=== PATIENT | male | born 1955 | race Caucasian/White ===

== ENCOUNTER 2017-02-15 09:34 | Observation (INO) | payer OTHER ==
[~2017-02-15] VITALS: Ht 185.4 cm; Wt 133.9 kg
[~2017-02-15 09:34] MED LIST: AMOX1TAB64 PO; ASPI-650 PO; ESOM40CA PO; FLUT16SP2 INH; LISI-167 PO
[2017-02-15] MEDS ORDERED: SODIUM CHLORIDE FLUSH 10ML SYR IVF ONE (10:00)
[2017-02-15] MEDS ORDERED: SODIUM CHLORIDE 0.9% 1,000ML IVBOLUS ONE (10:00)
[2017-02-15 10:25] LABS: HEMATOCRIT 44.1 % (39.2-51.8); HEMOGLOBIN 14.8 g/dL (13.7-18.0); WHITE BLOOD COUNT 18.3 x10^3/uL (3.4-10)
[2017-02-15] MEDS ORDERED: ONDANSETRON 2MG/ML, 2ML ONE (10:28)
[2017-02-15] MEDS ORDERED: KETOROLAC 30 MG/1 ML ONE (10:28)
[2017-02-15] MEDS ORDERED: DEXAMETHASONE 4 MG/ML, 1ML ONE (10:28)
[2017-02-15] MEDS ORDERED: PROPOFOL 10 MG/ML, 20ML ONE (10:28)
[2017-02-15 10:38] LABS: ASPARTATE AMINO TRANSFERASE 9 U/L (15-37); BLOOD UREA NITROGEN 13 mg/dL (7-18)
[2017-02-15] MEDS ORDERED: OMNIPAQUE 350 MG/ML, 100ML BOTTLE ONE (11:50)
[2017-02-15] MEDS ORDERED: SILO8CAP PO (12:52)
[2017-02-15] MEDS ORDERED: METRONIDAZOLE PMX 500MG/100ML 100 ML ONE (12:54)
[2017-02-15] MEDS ORDERED: METRONIDAZOLE PMX 500MG/100ML 100 ML IV ONE (13:00)
[2017-02-15 13:50] VITALS: BP 154/92
[2017-02-15] MEDS ORDERED: BUPIVACAINE/PF 0.5% ONE (16:01)
[2017-02-15] MEDS ORDERED: EPINEPHRINE 1 MG/ML, 1ML ONE (16:01)
[2017-02-15] MEDS ORDERED: FENTANYL PF 100 MCG/2ML ONE (16:03)
[2017-02-15] MEDS ORDERED: MIDAZOLAM 1 MG/ML, 2ML ONE (16:03)
[2017-02-15] MEDS ORDERED: HYDROmorphone 1 MG/ML, 1ML ONE (16:32)
[2017-02-15] MEDS ORDERED: LACTATED RINGERS 1,000 ML IV SCH (16:37)
[2017-02-15] MEDS ORDERED: OXYcodone 5 MG/5 ML ORAL.SOL UDC ONE (16:51)
[2017-02-15] MEDS ORDERED: morphine SULFATE 10 MG/ML, 1ML IVPush PRN (17:00)
[2017-02-15] MEDS ORDERED: HYDROcodone/APAP 5/325 TABLET PO PRN (17:00)
[2017-02-15] MEDS ORDERED: ONDANSETRON 2MG/ML, 2ML IVPush PRN ×2 (17:00→17:30)
[2017-02-15] MEDS ORDERED: hydrALAzine 20 MG/ML, 1ML IV PRN (17:30)
[2017-02-15] MEDS ORDERED: ACETAMINOPHEN 325 MG TABLET PO PRN (17:30)
[2017-02-15] MEDS ORDERED: OXYcodone 5 MG/5 ML ORAL.SOL UDC PO PRN ×2 (17:30)
[2017-02-15] MEDS ORDERED: LABETALOL 5MG/ML, 20ML IV PRN (17:30)
[2017-02-15] MEDS ORDERED: FENTANYL PF 100 MCG/2ML IV PRN (17:30)
[2017-02-15] MEDS ORDERED: MEPERIDINE/PF 25MG/0.5ML IVPush PRN (17:30)
[2017-02-15] MEDS ORDERED: HYDROmorphone 1 MG/ML, 1ML IV PRN (17:30)
[2017-02-15] MEDS ORDERED: PROMETHAZINE 25 MG/ML, 1ML IV PRN (17:30)
[2017-02-15 17:46] VITALS: BP 135/83
[2017-02-15] MEDS ORDERED: OXYcodone 5 MG/5 ML ORAL.SOL UDC PO ONE (18:00)
[2017-02-15 18:55] VITALS: BP 128/77
[2017-02-15] MEDS ORDERED: HYDR-3240 PO (19:35)
[2017-02-15] MEDS ORDERED: LISINOPRIL 20 MG TABLET PO SCH (21:00)
[2017-02-15] MEDS ORDERED: (Esomeprazole Magnesium** (Nexium**) 40 MG) PO SCH (21:00)
== END 2017-02-15 20:12 | disposition home or self-care (01) ==
LOC: ED 10:31 → EDIP 12:50 → INTOOBSV 12:50 → 4NOR 13:50
PROVIDERS: ADMIT Thoracic Surgery (Cardiothoracic Vascular Surgery); ATTEND Thoracic Surgery (Cardiothoracic Vascular Surgery)
DX: K61.1 Rectal abscess (principal); I10 Essential (primary) hypertension; K21.9 Gastro-esophageal reflux disease without esophagitis
CPT/HCPCS: 36415; 46040; 72193; 80053; 85025; 87070; 87075; 87076; 87077; 87147; 87186; 87205; 96365; 99285; G0378; J0171; J1100; J1170; J1885; J2250; J2405; J2704; J3010; J3490; J7030; J7120; Q9967

== ENCOUNTER → 2020-09-25 | Outpatient (CLI) | payer OTHER ==
[~2020-09-25] MED LIST changes: -ASPI-650 PO; +ASPI325T20 PO; +HYDR-2214 PO; +SILO8CAP2 PO
== END | disposition home or self-care (01) ==
LOC: CARD 08:29
PROVIDERS: ATTEND Family Medicine
DX: R07.89 Other chest pain (principal); N64.4 Mastodynia
CPT/HCPCS: 93017

== ENCOUNTER → 2020-10-06 | Outpatient (CLI) | payer OTHER | END | disposition home or self-care (01) | LOC: CFH 13:44 | PROVIDERS: ATTEND Family Medicine | DX: N62 Hypertrophy of breast (principal); N64.4 Mastodynia | CPT/HCPCS: 76642; 77062; 77066; G0279 ==